=== PATIENT | male | born 1970 | race Caucasian/White ===

== ENCOUNTER 2020-06-19 01:08 | Emergency (ER) | payer BC ==
[2020-06-19] MEDS ORDERED: Alum Hydrox/Mag Hydrox/Simeth 30 ML, Lidocaine 2% 15 ML PO ONE ×2 (01:22)
--- NOTE | 2020-06-19 01:30 | EDM.PDOC ---
ED HPI GENERAL MEDICAL PROBLEM - General Chief Complaint: Chest Pain Stated Complaint: CHEST PAIN Time Seen by Provider: 06/19/20 01:14 Source of Information: Reports: Patient, Significant Other (Girlfriend) History Limitations: Reports: No Limitations - History of Present Illness INITIAL COMMENTS - FREE TEXT/NARRATIVE: Mr. Ann is a very pleasant 50-year-old gentleman with no chronic medical problems, on no medications, who now presents the ED after being woken up around 00:40 morning with retrosternal chest pain, throbbing, stabbing, and sharp in character. He states that the pain is felt across the upper parts of both of his shoulders, then down towards the central chest, sort of like bilateral seatbelts. He states that it is a pain, not a discomfort. He has not identified any modifiers, but he states that the pain is improving on its own here in the ED. He states that he initially felt slightly clammy, but denies associated dyspnea, nausea, or sense of impending doom. No prior similar symptoms. The patient states that he took 2 full-strength aspirin around 01:00, just prior to coming to the ED. 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 His activities are not limited by dyspnea or chest discomfort. Here in the ED, the patient's initial BP is found to be slightly elevated at 130/105, with slight tachycardia of 102 bpm. He is afebrile, saturating 96% on room air. Prior to this morning, the patient denies having a recent fever, chills, sore throat, ear pain, nasal or sinus congestion, cough, dyspnea, chest pain, palpitations, nausea, vomiting, constipation, diarrhea, abdominal pain, urinary symptoms, recent weight gain or weight loss, recent bloody bowel movements or black bowel movements, recent joint aches, headaches, or rashes. The patient does not have a PCP. He has not received an influenza vaccine this season, and declined an offer to receive one here in the ED. Chest Pain Score (Numeric/FACES): 9 - Related Data Allergies Allergy/AdvReac Type Severity Reaction Status Date / Time No Known Allergies Allergy Verified 06/19/20 01:13 Home Meds: Home Meds . [No Known Home Meds] 06/19/20 [History] Past Medical History Endocrine/Metabolic History: Reports: Obesity/BMI 30+ - Past Surgical History HEENT Surgical History: Reports: Oral Surgery (dental extractions), Tonsillectomy Musculoskeletal Surgical History: Reports: Arthroscopic Knee (left, Mar 2020) Social & Family History - Tobacco Use Years of Tobacco use: 33 Packs/Tins Daily: 0.5 - Alcohol Use Alcohol Use History: Yes Alcohol Use Frequency: Socially (rarely to excess) - Recreational Drug Use Recreational Drug Use: Yes Drug Use in Last 12 Months: No Recreational Drug Type: Reports: Marijuana/Hashish (last smoked around 1989) - Living Situation & Occupation Living situation: Reports: Single, with Significant Other (Girlfriend), with Family (3 kids) 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 ED EXAM, GENERAL - Physical Exam Exam: See Below Exam Limited By: No Limitations General Appearance: Alert, WD/WN, No Apparent Distress Eye Exam: Bilateral Eye: EOMI, Normal Inspection Ears: Normal External Exam, Hearing Grossly Normal Nose: Normal Inspection Throat/Mouth: Normal Inspection, Normal Lips, Normal Voice, No Airway Compromise Head: Atraumatic, Normocephalic Neck: Normal Inspection, Full Range of Motion Respiratory/Chest: No Respiratory Distress, Lungs Clear, Normal Breath Sounds, No Accessory Muscle Use, Chest Non-Tender (including the sternum and upper bilateral shoulders/trapezius) Cardiovascular: Normal Peripheral Pulses, Regular Rate, Rhythm, No Edema, No Gallop, No JVD, No Murmur, No Rub Peripheral Pulses: 3+: Radial (L), Radial (R) GI/Abdominal: Normal Bowel Sounds, Soft, Non-Tender, No Organomegaly, No Distention, No Abnormal Bruit, No Mass Back Exam: Normal Inspection, Full Range of Motion, NT Extremities: Normal Inspection, Normal Range of Motion, Normal Capillary Refill Neurological: Alert, Oriented, Normal Cognition, No Motor/Sensory Deficits Psychiatric: Normal Affect Skin Exam: Warm, Dry, Intact, Normal Color, No Rash #1 Interpretation EKG Date: 06/19/20 Time: 01:13 Rhythm: NSR (with 2 PVCs) Rate (Beats/Min): 100 Cadwell: Normal P-Wave: Present (? ARMAND? Borderline 1st degree AVB.) QRS: Normal ST-T: Normal QT: Normal Comparison: NA - No Prior EKG #2 Interpretation EKG Date: 06/19/20 Time: 05:16 Rhythm: NSR Rate (Beats/Min): 81 Cadwell: Normal P-Wave: Present QRS: Normal ST-T: Normal QT: Normal Course - Vital Signs Last Recorded V/S: Last Vital Signs Temp 35.5 C L 06/19/20 01:11 Pulse 87 06/19/20 01:52 Resp 16 06/19/20 01:52 BP 137/79 06/19/20 01:52 Pulse Ox 95 06/19/20 01:52 - Orders/Labs/Meds Orders: Active Orders 24 hr Category Date Time Status EKG 12 Lead [EKG Documentation Completion] [RC] STAT Care 06/19/20 01:15 Active EKG Documentation Completion [RC] STAT Care 06/19/20 05:12 Active Chest 2V [CR] Stat Exams 06/19/20 01:23 Taken Labs: Laboratory Tests 06/19/20 06/19/20 06/19/20 Range/Units 01:20 01:20 01:20 WBC 8.34 (4.23-9.07) K/mm3 RBC 5.21 (4.63-6.08) M/mm3 Hgb 16.3 (13.7-17.5) gm/dl Hct 45.9 (40.1-51.0) % MCV 88.1 (79.0-92.2) fl MCH 31.3 (25.7-32.2) pg MCHC 35.5 (32.2-35.5) g/dl RDW Std Deviation 41.4 (35.1-43.9) fL Plt Count 206 (163-337) K/mm3 MPV 10.8 (9.4-12.3) fl Neutrophils % (Manual) 57 (40-60) % Band Neutrophils % 0 (0-10) % Lymphocytes % (Manual) 34 (20-40) % Atypical Lymphs % 0 % Monocytes % (Manual) 7 (2-10) % Eosinophils % (Manual) 2 (0.8-7.0) % Basophils % (Manual) 0 L (0.2-1.2) Platelet Estimate Adequate RBC Morph Comment Normal D-Dimer, Quantitative < 0.19 L (0.19-0.50) mg/L Sodium 145 (136-145) mEq/L Potassium 3.7 (3.5-5.1) mEq/L Chloride 107 (98-107) mEq/L Carbon Dioxide 25 (21-32) mEq/L Anion Gap 16.7 H (5-15) BUN 16 (7-18) mg/dL Creatinine 1.2 (0.7-1.3) mg/dL Est Cr Clr Drug Dosing 76.89 mL/min Estimated GFR (MDRD) > 60 (>60) mL/min BUN/Creatinine Ratio 13.3 L (14-18) Glucose 117 H (74-106) mg/dL Calcium 8.7 (8.5-10.1) mg/dL Magnesium 2.0 (1.8-2.4) mg/dl Total Bilirubin 0.3 (0.2-1.0) mg/dL AST 22 (15-37) U/L ALT 46 (16-63) U/L Alkaline Phosphatase 57 (46-116) U/L Troponin I < 0.017 (0.00-0.056) ng/mL Total Protein 7.0 (6.4-8.2) g/dl Albumin 3.9 (3.4-5.0) g/dl Globulin 3.1 gm/dL Albumin/Globulin Ratio 1.3 (1-2) 06/19/20 Range/Units 04:43 WBC (4.23-9.07) K/mm3 RBC (4.63-6.08) M/mm3 Hgb (13.7-17.5) gm/dl Hct (40.1-51.0) % MCV (79.0-92.2) fl MCH (25.7-32.2) pg MCHC (32.2-35.5) g/dl RDW Std Deviation (35.1-43.9) fL Plt Count (163-337) K/mm3 MPV (9.4-12.3) fl Neutrophils % (Manual) (40-60) % Band Neutrophils % (0-10) % Lymphocytes % (Manual) (20-40) % Atypical Lymphs % % Monocytes % (Manual) (2-10) % Eosinophils % (Manual) (0.8-7.0) % Basophils % (Manual) (0.2-1.2) Platelet Estimate RBC Morph Comment D-Dimer, Quantitative (0.19-0.50) mg/L Sodium (136-145) mEq/L Potassium (3.5-5.1) mEq/L Chloride (98-107) mEq/L Carbon Dioxide (21-32) mEq/L Anion Gap (5-15) BUN (7-18) mg/dL Creatinine (0.7-1.3) mg/dL Est Cr Clr Drug Dosing mL/min Estimated GFR (MDRD) (>60) mL/min BUN/Creatinine Ratio (14-18) Glucose (74-106) mg/dL Calcium (8.5-10.1) mg/dL Magnesium (1.8-2.4) mg/dl Total Bilirubin (0.2-1.0) mg/dL AST (15-37) U/L ALT (16-63) U/L Alkaline Phosphatase (46-116) U/L Troponin I < 0.017 (0.00-0.056) ng/mL Total Protein (6.4-8.2) g/dl Albumin (3.4-5.0) g/dl Globulin gm/dL Albumin/Globulin Ratio (1-2) Meds: Medications Discontinued Medications Generic Name Dose Route Start Last Admin Trade Name Freq PRN Reason Stop Dose Admin Al Hydroxide/Mg Hydroxide 30 ml 06/19/20 04:43 06/19/20 04:51 Mag-Al Plus PO 06/19/20 04:44 30 ml ONETIME ONE Administration Al Hydroxide/Mg Hydroxide 30 0 ml 06/19/20 01:22 06/19/20 01:25 ml/ Lidocaine HCl 15 ml PO 06/19/20 01:23 45 ml ONETIME ONE Administration Famotidine 40 mg 06/19/20 04:43 06/19/20 04:52 Pepcid PO 06/19/20 04:44 40 mg ONETIME STA Administration Hydromorphone HCl 0.5 mg 06/19/20 05:18 06/19/20 05:23 Dilaudid IVPUSH 06/19/20 05:19 0.5 mg ONETIME ONE Administration Ondansetron HCl 4 mg 06/19/20 05:18 06/19/20 05:23 Zofran IVPUSH 06/19/20 05:19 4 mg ONETIME ONE Administration - Re-Assessments/Exams Free Text/Narrative Re-Assessment/Exam: 06/19/20 01:24 Waking up with with retrosternal chest pain, not discomfort, is strongly suggestive of GERD, and for that reason, I have ordered a GI cocktail. We will see if that has any effect on his already resolving symptoms. An ECG, obtained at triage, demonstrates 2 PVCs, but no ischemic changes. I have ordered a work- up and includes several blood tests and a chest x-ray. As per the HPI, the patient states that he took 2 full-strength aspirin just prior to coming to the ED. 06/19/20 01:46 Notified by Dalia GARRETT that the patient reported that his symptoms improved somewhat following the GI cocktail. Two-view chest radiograph appears to be grossly normal. The cardiac silhouette is within normal limits. No pulmonary vascular congestion. No pleural effusions. No focal infiltrate. No pneumothorax. There is very subtle thoracolumbar scoliosis. Formal read per the Radiologist pending. 06/19/20 02:41 The patient's CBC, CMP, magnesium level, initial troponin, and D-dimer are all unremarkable/within normal limits/undetectably low. Test results discussed with the patient and his girlfriend. As above, his presentation today is most consistent with GERD, however, in order to be certain that he has not suffered an UT, we would need to repeat a second troponin IV hours after the onset of his symptoms, at 04:40. The patient is agreeable with this. I have therefore entered a timed order. 06/19/20 05:13 After the patient had been given a GI cocktail, his pain completely resolved, however, I was notified about half an hour ago by the blood bank laboratory professional that the patient had reported to her that his pain was coming back. I ordered some Maalox and oral famotidine, however, I am now notified by Dalia GARRETT that the patient's pain has persisted despite that treatment, felt primarily to the upper bilateral shoulders. I have therefore ordered a repeat ECG. 06/19/20 05:19 The repeat ECG is grossly normal, with no ischemic changes. Dalia GARRETT indicated that the patient would like some actual pain medication, therefore I have orde red IV Dilaudid with IV Zofran. 06/19/20 05:47 The patient's repeat troponin remains undetectably low. 06/19/20 05:52 Test results discussed with the patient (his girlfriend is no longer present). He is still feeling some discomfort, but I reassured him that his pain is not due to angina, or a PE, collapsed lung, or pneumonia. We are not able to prove GERD from the ED, however, based on his work-up today, that is the most likely explanation, and for that reason I will recommend that he start taking [id number] famotidine on a regular basis. I believe he can safely be discharged home, however, if his symptoms persist, he should follow-up in the clinic. The patient is agreeable. Departure - Departure Time of Disposition: 05:53 Disposition: Home, Self-Care 01 Condition: Good Clinical Impression: GERD (gastroesophageal reflux disease) - Discharge Information *PRESCRIPTION DRUG MONITORING PROGRAM REVIEWED*: Not Applicable *COPY OF PRESCRIPTION DRUG MONITORING REPORT IN PATIENT CLIF: Not Applicable Referrals: Tuyet Storey NP [Nurse Practitioner] - Forms: ED Department Discharge Additional Instructions: You were seen in the emergency room after waking up with severe midline chest pain. Work-up in the ER included numerous blood tests, a chest x-ray, and 2 ECGs. Your entire work-up was unremarkable. You have not suffered a heart attack. You do not have a blood clot in your lungs. You do not have pneumonia or a collapsed lung. Based on your history, physical exam, and ER tests, the cause of your chest pain is most likely due to acid reflux, also known as GERD. We recommend that you begin taking [id number] famotidine, 1 tablet either once or twice a day, on a regular basis. Generic famotidine is just as good as brand-name Pepcid. If your symptoms persist or recur, please follow-up with Tuyet Storey NP, or one of the other providers in the clinic, for further evaluation. If any other problems, please do not hesitate to return to the ER. Sepsis Event Note (ED) - Evaluation Sepsis Screening Result: No Definite Risk - Focused Exam Vital Signs: Vital Signs Temp Pulse Resp BP Pulse Ox 06/19/20 01:52 87 16 137/79 95 06/19/20 01:11 35.5 C L 102 H 18 130/105 H 96 - My Orders Last 24 Hours: My Active Orders 06/19/20 01:15 EKG 12 Lead [EKG Documentation Completion] [RC] STAT 06/19/20 01:23 Chest 2V [CR] Stat 06/19/20 05:12 EKG Documentation Completion [RC] STAT - Assessment/Plan Last 24 Hours: My Active Orders 06/19/20 01:15 EKG 12 Lead [EKG Documentation Completion] [RC] STAT 06/19/20 01:23 Chest 2V [CR] Stat 06/19/20 05:12 EKG Documentation Completion [RC] STAT
[2020-06-19] MEDS ORDERED: Aluminum Hydroxide/Magnesium Hydroxide/Simethicone Susp 30 ML Cup PO ONE (04:43)
[2020-06-19] MEDS ORDERED: Famotidine 20 MG Tab PO STA (04:43)
[2020-06-19] MEDS ORDERED: HYDROmorphone 0.5 MG/0.5 ML Syringe IVPUSH ONE (05:18)
[2020-06-19] MEDS ORDERED: Ondansetron 4 MG/2 ML SDV IVPUSH ONE (05:18)
--- NOTE | 2020-06-19 07:43 | CR ---
Chest: 2 views of the chest were obtained. Comparison: No prior chest imaging is available. Heart size and mediastinum are within normal limits. Lungs are clear with no acute parenchymal change. Bony structures are within normal limits for the patient's age. Impression: 1. Nothing acute is identified on 2 view chest x-ray. Diagnostic code #1
== END 2020-06-19 06:12 | disposition home or self-care (01) ==
LOC: JD.ED 01:08
DX: K21.9 Gastro-esophageal reflux disease without esophagitis (principal); E66.9 Obesity, unspecified; Z68.33 Body mass index [BMI] 33.0-33.9, adult; Z72.0 Tobacco use
CPT/HCPCS: 36415; 71046; 71046-26; 80053; 83735; 84484; 85007; 85027; 85379; 93005; 93010; 96374; 96375; 99284; 99285-25; A9270-GY; J1170; J2405